=== PATIENT | female | born 1970 | race Caucasian/White ===

== ENCOUNTER → 2020-10-23 08:20 | Outpatient (CLI) | payer BC, SELFPAY ==
[2020-10-23 09:04] LABS: Basophils # 0.1 K/mm3 (0-0.2); Basophils % 0.8 % (0.1-2.0); Eosinophils # 0.1 K/mm3 (0.0-0.4); Eosinophils % 2.1 % (0.1-12.0); Hematocrit 45.7 % (37.0-47.0); Hemoglobin 15.8 g/dL (12.2-16.2); Lymphocytes # 3.8 K/mm3 (0.7-4.5); Lymphocytes % 55.3 % (10-50); Mean Corpuscular HGB Conc 34.6 g/dL (31.8-35.4); Mean Corpuscular Hemoglobin 31.6 pg (27.0-31.2); Mean Corpuscular Volume 91.4 fl (81-99); Mean Platelet Volume 8.2 fl (7.4-10.4); Monocytes # 0.3 K/mm3 (0.1-1.0); Neutrophils # 2.5 K/mm3 (1.8-7.8); Neutrophils % 36.8 % (37.0-80.0); Platelet Count 206 K/mm3 (142-424); Red Cell Distribution Width 13.4 % (11.5-17.5); White Blood Count 6.9 K/mm3 (4.8-10.8)
[2020-10-23 09:06] LABS: MANUAL DIFFERENTIAL MANUAL DIFFERENTIAL (MANUAL DIFF)
[2020-10-23 09:46] LABS: Eosinophils % 2 % (0-3); Lymphocytes % 49 % (10-50); Monocytes % 10 % (2-9); Neutrophils % 39 % (42-76); Platelet Estimate Normal; Total Cells Counted 100
[2020-10-23 10:10] LABS: Chloride 103 mmol/L (98-107); Sodium 140 mmol/L (136-145)
[2020-10-23 10:11] LABS: Potassium 4.7 mmoL/L (3.5-5.1)
[2020-10-23 10:13] LABS: Alanine Aminotransferase 120 U/L (12-78); Albumin Level 4.5 g/dl (3.5-5.0); Albumin/Globulin Ratio 1.6 (1.1-1.8); Alkaline Phosphatase 100 U/L (38-126); Anion Gap 12.7 mEq/L (5-15); Aspartate Amino Transferase 86 U/L (14-36); Bilirubin,Total 0.6 mg/dl (0.2-1.3); Blood Urea Nitrogen 9 mg/dl (7-17); Carbon Dioxide 29 mmol/L (22.0-30.0); Estimated Glomerular Filt Rate 76 ml/min (>60); GFR (African American) 92 ML/MIN (>60); Globulin 2.9 g/dL (1.3-3.2); Total Protein,Serum 7.4 g/dl (6.3-8.2)
[2020-10-23 10:14] LABS: Calcium 9.6 mg/dl (8.4-10.2); Cholesterol 200 mg/dl (140-200); Glucose 105 mg/dl (74-100); HDL Cholesterol 50 mg/dl (40-60); Triglycerides 104 mg/dl (30-150); VLDL Cholesterol 21 mg/dL (0-40)
[2020-10-23 10:30] LABS: Direct LDL Cholesterol 114.69 mg/dL (100-129)
[2020-10-23 10:42] LABS: Triiodothryronine (T3) Uptake 28 % (23.5-40.5)
[2020-10-23 10:43] LABS: Free Thyroxine Index 3.8 ug/dL (5.93-13.13); T4 (Thyroxine) 13.5 ug/dl (5.53-11.0)
[2020-10-23 10:44] LABS: 25-OH Vitamin D, Total 77.3 ng/mL (30-100)
[2020-10-23 10:57] LABS: Thyroid Stimulating Hormone 1.98 uIU/mL (0.465-4.68)
[2020-10-23 17:35] LABS: Vitamin B12 > 1000 pg/mL (239-931)
[2020-10-24 08:16] LABS: LH 71.8 mIU/mL (.)
[2020-10-28 14:12] LABS: Testosterone, Total, LC/MS 55.5 ng/dL (.); Testosterone,Free 4.3 pg/mL (0.0-4.2)
== END ==
PROVIDERS: Visit Provider Internal Medicine Adolescent Medicine
DX: E03.9 Hypothyroidism, unspecified (principal); E78.2 Mixed hyperlipidemia; E53.8 Deficiency of other specified B group vitamins; E55.9 Vitamin D deficiency, unspecified; N94.6 Dysmenorrhea, unspecified
CPT/HCPCS: 36415; 80053; 80061; 82306; 82607; 83001; 83002; 84402; 84403; 84436; 84443; 84479; 85007; 85025

== ENCOUNTER 2025-02-25 08:25 | Outpatient (CLI) | payer BC, SELFPAY ==
--- OUTSIDE RECORDS SUMMARY | 2025-02-25 08:29 | XMS_ITS | Clinical Summary ---
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 Name Role Phone Toro Diamond MD Primary Care Provider [phone] Family History * Patient is adopted Medical History Relation Name Comments No Known Problems Brother No Known Problems Daughter No Known Problems Father No Known Problems Maternal Aunt No Known Problems Maternal Grandmother No Known Problems Mother No Known Problems Paternal Aunt No Known Problems Paternal Grandmother No Known Problems Sister No Known Problems Son BRCA 1/2 Neg Hx Colon cancer Neg Hx Endometrial cancer Neg Hx Relation Name Status Comments Brother Daughter Father Maternal Aunt Maternal Grandmother Mother Paternal Aunt Paternal Grandmother Sister Son Social History Tobacco Use Types Packs/Day Years Used Date Smoking Tobacco: Never Assessed Comments No Sex and Gender Information Value Date Recorded Sex Assigned at Not on file Legal Sex Female 11:45 AM EDT Gender Identity Not on file Sexual Orientation Not on file Plan of Treatment Health Maintenance Due Date Last Done Comments Annual Gynecologic Pelvic an d Breast Exam 1971 TDAP/TD VACCINES (1 - Tdap) 1990 COLOGUARD 2016 COLON CANCER SCREENING 5 YEA R SIGMOIDOSCOPY 2016 COLONOSCOPY [address] CANCER SCREENING 2016 CT COLONOGRAPHY 2016 FECAL OCCULT BLOOD TEST 2016 FIT Testing (1 year) 2016 ANNUAL PHYSICAL 11/26/2019 HEPATITIS C SCREENING 11/26/2019 Pneumococcal Vaccine 50+ (1 of 1 - PCV) 2021 ZOSTER VACCINE (1 of 2) 2021 INFLUENZA VACCINE 11/01/2024 02/01/2018 MAMMOGRAM 08/30/2026 08/30/2024, 02/02, 08/22/2023, Additional history exists Procedures Procedure Name Priority Date/Time Associated Diagnosis Comments MAMMO SCREENING DIGITAL TOMOSYNTHESIS BILATERAL W CAD Routine 08/30/2024 8:54 AM EDT Visit for screening mammogram from Last 3 Months or Most Recently Relevant to Health Maintenance Results * Mammo Screening Digital Tomosynthesis Bilateral With CAD (08/30/2024 8:54 AM EDT) Anatomical Region Laterality Modality Breast N/A Mammography 08/31/2024 10:1 7 AM EDT Impressions 08/31/2024 10:19 AM EDT Negative bilateral mammogram. RECOMMENDATION: Continue annual screening mammography. BI-RADS CATEGORY 1, NEGATIVE. CAD was utilized. The standard false-negative rate of mammography is between 10% and 25%. Complex patterns or increased breast density will markedly elevate the false-negative rate of mammography. A letter, in lay terminology, with the results of this exam will be mailed to the patient. 08/31/2024 10:[address] Bridger Gracia MD on Narrative 08/31/2024 10:19 AM EDT DIGITAL SCREENING MAMMOGRAM WITH TOMOSYNTHESIS HISTORY: Screening Mammography. Low dose full field digital breast tomosynthesis imaging was performed with 2D and 3D acquisitions consisting of bilateral CC and MLO views. Examination is compared to prior examination dating back to 09/08/2017. Examination is read in conjunction with computer aided detection. FINDINGS: There are scattered areas of fibroglandular density. No suspicious masses, microcalcifications or areas of architectural distortion are present. Toro Diamond MD IMG MAMMOGRAPHY ORDERABLES F inal Result from Last 3 Months or Most Recently Relevant to Health Maintenance Insurance [facility] Care Teams Smoking Tobacco Packing Machine Hand Relationship Specialty Start Date End Date Toro Diamond MD [id number] [place] [id number] [place] [address] PCP - General 02/20/15
--- NOTE | 2025-02-25 08:30 | XR_ITS ---
FINAL REPORT CLINICAL HISTORY: PERSISTENT COUGH COMPARISON: None FINDINGS: PA and lateral views of the chest are obtained. There is no prior exam for comparison. There is evidence of prior granulomatous disease. The cardiac and mediastinal silhouettes are within normal limits. The lungs are clear. There is no pleural effusion, pneumothorax, or acute osseous abnormality. IMPRESSION: No radiographic evidence of acute cardiac or pulmonary disease. Reviewed, Interpreted and Dictated by Prudence Berg MD Transcribed by Selma Godfrey Authenticated and [facility]
== END 2025-02-25 23:59 | disposition home or self-care (01) ==
LOC: RAD 08:27
PROVIDERS: PCP Internal Medicine Adolescent Medicine; Visit Provider Internal Medicine Adolescent Medicine
DX: R05.3 Chronic cough (principal)
CPT/HCPCS: 71046